=== PATIENT | female | born 2000 | race Caucasian/White ===

== ENCOUNTER 2020-10-20 10:21 | Emergency (ER) | payer BC, OTHER ==
--- NOTE | 2020-10-20 12:06 | EDM.PDOC ---
ED HPI GENERAL MEDICAL PROBLEM - General Chief Complaint: Respiratory Problem Stated Complaint: SOB LOW BLOOD PRESSURE AND O2 SENT BY ELLIS Time Seen by Provider: 10/20/20 11:07 Source of Information: Reports: Patient History Limitations: Reports: No Limitations - History of Present Illness INITIAL COMMENTS - FREE TEXT/NARRATIVE: 20-year-old female presents to the emergency department today with complaints of persistent cough of green/main sputum, shortness of breath, sore throat, nausea, vomiting, and diarrhea. She states that 3 days ago she developed symptoms of sinus congestion, productive cough and a sore throat. She states she called in sick to work that day and the next day she was not feeling any better so her employer told her to go have Covid testing completed. She states that this came back negative however she states that she has progressively started to feel worse. She went to the walk-in clinic today to be evaluated for her symptoms and states she had nausea and then vomited all over the waiting room. She states they then told her that she needed to be evaluated in the emergency department. She does have carry a medical history of asthma. She states she has been doing albuterol nebulizers every 4 hours for the past 2 days as well as Proventil nebs twice daily which she states has seemed to help make her cough more productive of sputum however has not really helped her shortness of breath. She states she recently has seen an ENT doctor due to hearing loss in her right ear which they suspect is due to numerous ear infections. He placed her on a tapering dose of prednisone starting at 60 mg. She states she is currently on the 40 mg dose. She denies any ear pain at this time. - Related Data Allergies Allergy/AdvReac Type Severity Reaction Status Date / Time No Known Allergies Allergy Verified 10/20/20 10:47 Home Meds: Home Meds Albuterol Sulfate 1 inh INH Q4H PRN 10/20/20 [History] Budesonide [Pulmicort] 1 inh INH BID 10/20/20 [History] Budesonide/Formoterol Fumarate [Symbicort 160-4.5 Mcg Inhaler] 2 puff INH DAILY 10/20/20 [History] PARoxetine [Paxil] 10 mg PO DAILY 10/20/20 [History] predniSONE [Prednisone] 60 mg PO ASDIRECTED 10/20/20 [History] Past Medical History HEENT History: Reports: Hard of Hearing, Impaired Vision Other HEENT History: hearing loss both ears. Wears eyeglasses. Respiratory History: Reports: Asthma, Bronchitis, Recurrent Neurological History: Reports: Migraines Psychiatric History: Reports: Anxiety - Infectious Disease History Infectious Disease History: Reports: Novel Coronavirus - Past Surgical History HEENT Surgical History: Reports: Adenoidectomy Social & Family History - Tobacco Use Tobacco Use Status *Q: Never Tobacco User Second Hand Smoke Exposure: No - Caffeine Use Caffeine Use: Reports: Coffee, Energy Drinks, Soda - Recreational Drug Use Recreational Drug Use: No ED ROS GENERAL - Review of Systems Review Of Systems: Comprehensive ROS is negative, except as noted in HPI. ED EXAM, GENERAL - Physical Exam Exam: See Below Exam Limited By: No Limitations General Appearance: Alert, WD/WN, No Apparent Distress Ears: Normal External Exam. No: Hearing Grossly Normal (Reports hearing loss; she currently is seeing an ENT specialist regarding this) Nose: Normal Inspection Throat/Mouth: Normal Inspection, Normal Lips, Normal Teeth, Normal Gums, Normal Oropharynx, Normal Voice, No Airway Compromise Head: Atraumatic Neck: Normal Inspection, Supple Respiratory/Chest: No Respiratory Distress, Lungs Clear, No Accessory Muscle Use, Chest Non-Tender, Decreased Breath Sounds Cardiovascular: Normal Peripheral Pulses, No Edema, No Murmur, Tachycardia Peripheral Pulses: 2+: Radial (L), Radial (R) GI/Abdominal: Normal Bowel Sounds, Soft, Non-Tender, No Distention (Female) Exam: Deferred Rectal (Female) Exam: Deferred Back Exam: Normal Inspection Extremities: Normal Inspection Neurological: Alert, Oriented, Normal Cognition Psychiatric: Normal Affect, Normal Mood Skin Exam: Warm, Dry, Intact, Normal Color, No Rash Lymphatic: No Adenopathy #1 Interpretation EKG Date: 10/20/20 Time: 12:05 Rhythm: NSR Rate (Beats/Min): 113 [place]: Normal P-Wave: Present QRS: Normal ST-T: Normal QT: Normal Comparison: NA - No Prior EKG EKG Interpretation Comments: Per Dr. Zabala interpretation: Sinus tachycardia at 113 bpm; P wave inverted in V1; decreased voltage in precordial leads. Course - Vital Signs Text/Narrative:: As stated above, presents with Covid type symptoms that have progressed over the past few days. She was tested for Covid day after her symptoms started and it was negative however this very well could have been too early. Upon exam, the patient is tachycardic in the 120s to 130s and has O2 saturations at 93% on room air. She denies any complaints of dizziness. She states she has been eating and drinking well. She is afebrile. Lung sounds are diminished posteriorly however she is obese so I suspect some of this is due to body habitus. She does not appear dyspneic at rest. Her oropharynx is unremarkable, there is no swelling or redness or exudate noted. She denies any complaints of nausea at this time. We will obtain a Covid swab on the patient as well as a chest x-ray and an EKG as well as lab studies. Last Recorded V/S: Last Vital Signs Temp 97.3 F 10/20/20 10:40 Pulse 124 H 10/20/20 10:40 Resp 16 10/20/20 10:40 BP 104/66 10/20/20 10:40 Pulse Ox 93 L 10/20/20 10:40 - Orders/Labs/Meds Orders: Active Orders 24 hr Category Date Time Status Nurse Communication: Isolation [RC] ASDIRECTED Care 10/20/20 11:45 Active RT Incentive Spirometry [RC] ASDIRECTED Care 10/20/20 11:45 Active CTA Chest W WO Contrast [Ang Chest] [CT] Stat Exams 10/20/20 13:49 Taken UA W/MICROSCOPIC [URIN] Stat Lab 10/20/20 14:00 Results Sodium Chloride 0.9% [Saline Flush] Med 10/20/20 15:46 Active 10 ml FLUSH ASDIRECTED PRN Isolation [COMM] Stat Oth 10/20/20 11:45 Ordered RT Acapella [RESPCARE] Routine Oth 10/20/20 11:45 Active Medication Orders Sodium Chloride (Sodium Chloride 0.9% 10 Ml Syringe) 10 ml FLUSH ASDIRECTED PRN PRN Reason: Keep Vein Open Last Admin: 10/20/20 15:47 Dose: 10 ml Documented by: NATASHA Labs: Laboratory Tests 10/20/20 10/20/20 10/20/20 Range/Units 12:07 12:39 12:39 WBC 10.29 H (3.98-10.04) K/mm3 RBC 4.64 (3.98-5.22) M/mm3 Hgb 13.3 (11.2-15.7) gm/dl Hct 40.6 (34.1-44.9) % MCV 87.5 (79.4-94.8) fl MCH 28.7 (25.6-32.2) pg MCHC 32.8 (32.2-35.5) g/dl RDW Std Deviation 40.1 (36.4-46.3) fL Plt Count 244 (182-369) K/mm3 MPV 10.4 (9.4-12.3) fl Neut % (Auto) 85.5 H (34.0-71.1) % Lymph % (Auto) 6.2 L (19.3-51.7) % [place] % (Auto) 6.3 (4.7-12.5) % Eos % (Auto) 1.7 (0.7-5.8) Baso % (Auto) 0.1 (0.1-1.2) % Neut # (Auto) 8.80 H (1.56-6.13) K/mm3 Lymph # (Auto) 0.64 L (1.18-3.74) K/mm3 [place] # (Auto) 0.65 H (0.24-0.36) K/mm3 Eos # (Auto) 0.17 (0.04-0.36) K/mm3 Baso # (Auto) 0.01 (0.01-0.08) K/mm3 D-Dimer, Quantitative (0.19-0.50) mg/L Sodium (136-145) mEq/L Potassium (3.5-5.1) mEq/L Chloride (98-107) mEq/L Carbon Dioxide (21-32) mEq/L Anion Gap (5-15) BUN (7-18) mg/dL Creatinine (0.55-1.02) mg/dL Est Cr Clr Drug Dosing mL/min Estimated GFR (MDRD) (>60) mL/min BUN/Creatinine Ratio (14-18) Glucose (70-99) mg/dL Calcium (8.5-10.1) mg/dL Ferritin 53 (8-252) ng/ml Total Bilirubin (0.2-1.0) mg/dL Direct Bilirubin (0.0-0.2) mg/dl Indirect Bilirubin AST (15-37) U/L ALT (14-59) U/L Alkaline Phosphatase (46-116) U/L Lactate Dehydrogenase (81-234) U/L C-Reactive Protein (<1.0) mg/dL Total Protein (6.4-8.2) g/dl Albumin (3.4-5.0) g/dl Globulin gm/dL Albumin/Globulin Ratio (1-2) Urine Color (Yellow) Urine Appearance (Clear) Urine pH (5.0-8.0) Ur Specific [place] (1.005-1.030) Urine Protein (Negative) Urine Glucose (UA) (Negative) Urine Ketones (Negative) Urine Occult Blood (Negative) Urine Nitrite (Negative) Urine Bilirubin (Negative) Urine Urobilinogen (0.2-1.0) Ur Leukocyte Esterase (Negative) Urine HCG, Qual (NEGATIVE) SARS-CoV-2 RNA (ANA) Negative (NEGATIVE) 10/20/20 10/20/20 10/20/20 Range/Units 12:39 12:39 14:00 WBC (3.98-10.04) K/mm3 RBC (3.98-5.22) M/mm3 Hgb (11.2-15.7) gm/dl Hct (34.1-44.9) % MCV (79.4-94.8) fl MCH (25.6-32.2) pg MCHC (32.2-35.5) g/dl RDW Std Deviation (36.4-46.3) fL Plt Count (182-369) K/mm3 MPV (9.4-12.3) fl Neut % (Auto) (34.0-71.1) % Lymph % (Auto) (19.3-51.7) % [place] % (Auto) (4.7-12.5) % Eos % (Auto) (0.7-5.8) Baso % (Auto) (0.1-1.2) % Neut # (Auto) (1.56-6.13) K/mm3 Lymph # (Auto) (1.18-3.74) K/mm3 [place] # (Auto) (0.24-0.36) K/mm3 Eos # (Auto) (0.04-0.36) K/mm3 Baso # (Auto) (0.01-0.08) K/mm3 D-Dimer, Quantitative 0.56 H (0.19-0.50) mg/L Sodium 137 (136-145) mEq/L Potassium 4.7 (3.5-5.1) mEq/L Chloride 102 (98-107) mEq/L Carbon Dioxide 26 (21-32) mEq/L Anion Gap 13.7 (5-15) BUN 18 (7-18) mg/dL Creatinine 0.9 (0.55-1.02) mg/dL Est Cr Clr Drug Dosing 81.79 mL/min Estimated GFR (MDRD) > 60 (>60) mL/min BUN/Creatinine Ratio 20.0 H (14-18) Glucose 101 H (70-99) mg/dL Calcium 8.4 L (8.5-10.1) mg/dL Ferritin (8-252) ng/ml Total Bilirubin 0.7 (0.2-1.0) mg/dL Direct Bilirubin 0.10 (0.0-0.2) mg/dl Indirect Bilirubin 0.60 AST 14 L (15-37) U/L ALT 23 (14-59) U/L Alkaline Phosphatase 84 (46-116) U/L Lactate Dehydrogenase 153 (81-234) U/L C-Reactive Protein 6.7 H* (<1.0) mg/dL Total Protein 7.3 (6.4-8.2) g/dl Albumin 3.6 (3.4-5.0) g/dl Globulin 3.7 gm/dL Albumin/Globulin Ratio 1.0 (1-2) Urine Color (Yellow) Urine Appearance (Clear) Urine pH (5.0-8.0) Ur Specific [place] (1.005-1.030) Urine Protein (Negative) Urine Glucose (UA) (Negative) Urine Ketones (Negative) Urine Occult Blood (Negative) Urine Nitrite (Negative) Urine Bilirubin (Negative) Urine Urobilinogen (0.2-1.0) Ur Leukocyte Esterase (Negative) Urine HCG, Qual Negative (NEGATIVE) SARS-CoV-2 RNA (ANA) (NEGATIVE) 10/20/20 Range/Units 14:00 WBC (3.98-10.04) K/mm3 RBC (3.98-5.22) M/mm3 Hgb (11.2-15.7) gm/dl Hct (34.1-44.9) % MCV (79.4-94.8) fl MCH (25.6-32.2) pg MCHC (32.2-35.5) g/dl RDW Std Deviation (36.4-46.3) fL Plt Count (182-369) K/mm3 MPV (9.4-12.3) fl Neut % (Auto) (34.0-71.1) % Lymph % (Auto) (19.3-51.7) % [place] % (Auto) (4.7-12.5) % Eos % (Auto) (0.7-5.8) Baso % (Auto) (0.1-1.2) % Neut # (Auto) (1.56-6.13) K/mm3 Lymph # (Auto) (1.18-3.74) K/mm3 [place] # (Auto) (0.24-0.36) K/mm3 Eos # (Auto) (0.04-0.36) K/mm3 Baso # (Auto) (0.01-0.08) K/mm3 D-Dimer, Quantitative (0.19-0.50) mg/L Sodium (136-145) mEq/L Potassium (3.5-5.1) mEq/L Chloride (98-107) mEq/L Carbon Dioxide (21-32) mEq/L Anion Gap (5-15) BUN (7-18) mg/dL Creatinine (0.55-1.02) mg/dL Est Cr Clr Drug Dosing mL/min Estimated GFR (MDRD) (>60) mL/min BUN/Creatinine Ratio (14-18) Glucose (70-99) mg/dL Calcium (8.5-10.1) mg/dL Ferritin (8-252) ng/ml Total Bilirubin (0.2-1.0) mg/dL Direct Bilirubin (0.0-0.2) mg/dl Indirect Bilirubin AST (15-37) U/L ALT (14-59) U/L Alkaline Phosphatase (46-116) U/L Lactate Dehydrogenase (81-234) U/L C-Reactive Protein (<1.0) mg/dL Total Protein (6.4-8.2) g/dl Albumin (3.4-5.0) g/dl Globulin gm/dL Albumin/Globulin Ratio (1-2) Urine Color Yellow (Yellow) Urine Appearance Slt cloudy H (Clear) Urine pH 8.5 H (5.0-8.0) Ur Specific [place] 1.020 (1.005-1.030) Urine Protein 1+ H (Negative) Urine Glucose (UA) Negative (Negative) Urine Ketones Negative (Negative) Urine Occult Blood Negative (Negative) Urine Nitrite Negative (Negative) Urine Bilirubin Negative (Negative) Urine Urobilinogen 0.2 (0.2-1.0) Ur Leukocyte Esterase Negative (Negative) Urine HCG, Qual (NEGATIVE) SARS-CoV-2 RNA (ANA) (NEGATIVE) Meds: Medications Generic Name Dose Route Start Last Admin Trade Name Freq PRN Reason Stop Dose Admin Sodium Chloride 10 ml 10/20/20 15:46 10/20/20 15:47 Sodium Chloride 0.9% 10 Ml Syringe FLUSH 10 ml ASDIRECTED PRN Administration Keep Vein Open Discontinued Medications Generic Name Dose Route Start Last Admin Trade Name Freq PRN Reason Stop Dose Admin Sodium Chloride 100 mls @ 4 mls/sec 10/20/20 15:46 10/20/20 15:47 Normal Saline IV 10/20/20 15:47 4 mls/sec ONETIME ONE Administration Iopamidol 100 ml 10/20/20 15:46 10/20/20 15:47 Iopamidol 755 Mg/Ml 100 Ml Bottle IVPUSH 10/20/20 15:47 100 ml ONETIME ONE Administration - Re-Assessments/Exams Free Text/Narrative Re-Assessment/Exam: 10/20/20 12:43 Radiologist impression portable view of the chest: 1. Nothing acute is seen on portable chest x-ray. 10/20/20 13:48 Calls to notify me that the patient's D-dimer is 0.56. She is tachycardic. Will obtain a urine test and once we find out that it is negative we will order a CT angiogram of the lungs. 10/20/20 15:04 Hemotology reveals a WBC of 10.29, hemoglobin 13.3, hematocrit 40.6, platelet count 244 D-dimer 0.56 Chemistry reveals a sodium of 137, potassium 4.7, carbon dioxide 26, anion gap 13.7, BUN 18, creatinine 0.9, glucose 101, calcium 8.4, ferritin 53, total bilirubin 0.7, direct bilirubin 0.10, indirect bilirubin 0.60, AST 14, ALT 23, LDH 153, C-reactive protein 6.7, patient's urine is negative, patient's Covid test is negative 10/20/20 16:22 V rad radiologist impression CTA of the chest with contrast: 1. No pulmonary embolism 2. No acute pulmonary finding. Patient will be discharged home. Departure - Departure Time of Disposition: 16:23 Disposition: Home, Self-Care 01 Condition: Good Clinical Impression: Viral upper respiratory illness - Discharge Information Instructions: Viral Respiratory Infection, [id number] Referrals: Nerissa Garnica [facility] [Primary Care Provider] - Forms: ED Department Discharge Additional Instructions: You were evaluated in the emergency department today. Several tests were completed which included labs, chest x-ray and a CT scan. Labs did not show anything conclusive. They were essentially unremarkable. There is no sign of infection. The test was negative. Chest x-ray did not show any pneumonia. CT scan was completed which did not show any pneumonia or blood clots. Urinalysis did not show any sign of infection. Suspect this is all likely due to viral illness. Recommended that you go home, rest, drink plenty of fluids. If you are not better by the middle of this week, recommend that you follow-up with your primary care provider. Sepsis Event Note (ED) - Evaluation Sepsis Screening Result: No Definite Risk - Focused Exam Vital Signs: Vital Signs Temp Pulse Resp BP Pulse Ox 10/20/20 10:40 97.3 F 124 H 16 104/66 93 L - My Orders Last 24 Hours: My Active Orders 10/20/20 11:45 Nurse Communication: Isolation [RC] ASDIRECTED RT Incentive Spirometry [RC] ASDIRECTED Isolation [COMM] Stat RT Acapella [RESPCARE] Routine 10/20/20 13:49 CTA Chest W WO Contrast [Ang Chest] [CT] Stat 10/20/20 14:00 UA W/MICROSCOPIC [URIN] Stat 10/20/20 15:46 Sodium Chloride 0.9% [Saline Flush] 10 ml FLUSH ASDIRECTED PRN - Assessment/Plan Last 24 Hours: My Active Orders 10/20/20 11:45 Nurse Communication: Isolation [RC] ASDIRECTED RT Incentive Spirometry [RC] ASDIRECTED Isolation [COMM] Stat RT Acapella [RESPCARE] Routine 10/20/20 13:49 CTA Chest W WO Contrast [Ang Chest] [CT] Stat 10/20/20 14:00 UA W/MICROSCOPIC [URIN] Stat 10/20/20 15:46 Sodium Chloride 0.9% [Saline Flush] 10 ml FLUSH ASDIRECTED PRN
--- NOTE | 2020-10-20 12:32 | CR ---
Chest: Portable view of the chest was obtained. Comparison: No prior chest imaging is available. Heart size and mediastinum are within normal limits. Lungs are clear with no acute parenchymal change. No acute bony abnormality is seen. Impression: 1. Nothing acute is seen on portable chest x-ray. Diagnostic code #1
[2020-10-20] MEDS ORDERED: Iopamidol 755 Mg/ML 100 ML Bottle IVPUSH ONE (15:46)
[2020-10-20] MEDS ORDERED: Sodium Chloride 0.9% 100 ML IV ONE (15:46)
[2020-10-20] MEDS ORDERED: Sodium Chloride 0.9% 10 ML Syringe FLUSH PRN (15:46)
--- NOTE | 2020-10-21 16:40 | CT ---
CT chest Technique: Multiple axial sections through the chest were obtained. Intravenous contrast was utilized. Comparison: Prior chest x-ray performed earlier on the same day (12:05 PM). Findings: Thoracic aorta shows no aneurysm. Pulmonary arteries are opacified and show no filling defects to indicate pulmonary embolism. Mediastinum shows no adenopathy. No hilar adenopathy seen. No pericardial thickening is appreciated. Very small low density finding is noted within the right lobe of the liver measuring 4 mm. This could represent a minimal cyst. Lung window settings were reviewed. No acute parenchymal change is seen. Bone window settings were reviewed which show no acute osseous abnormality. Impression: 1. Small cyst within the right lobe of the liver. 2. No findings of pulmonary embolism. 3. No acute abnormality is appreciated on CT study of the chest. Diagnostic code #2 I agree with preliminary report from [facility], finalized on 10/20/20, 5:12 PM CDT, code 1
== END 2020-10-20 16:37 | disposition home or self-care (01) ==
LOC: JD.ED 10:21
DX: J06.9 Acute upper respiratory infection, unspecified (principal); Z20.822 Contact with and (suspected) exposure to COVID-19
CPT/HCPCS: 36415; 71045; 71275; 80048; 80076; 81001; 81025; 82728; 83615; 85025; 85379; 86140; 87635; 93005; 94667; 99285; Q9967; U0002